=== PATIENT | female | born 1990 | race Caucasian/White ===

== ENCOUNTER 2020-03-10 23:46 | Emergency (ER) | payer OTHER ==
[2020-03-11] MEDS ORDERED: Acyclovir 200 MG Cap PO ONE (00:22)
--- NOTE | 2020-03-11 00:30 | EDM.PDOC ---
ED HPI GENERAL MEDICAL PROBLEM - General Chief Complaint: Neuro Symptoms/Deficits Stated Complaint: TENDERNESS LT SIDE OF FACE Time Seen by Provider: 03/11/20 00:24 Source of Information: Reports: Patient History Limitations: Reports: No Limitations - History of Present Illness INITIAL COMMENTS - FREE TEXT/NARRATIVE: pt arrived with left sided facial weakness, she is not able to close her left eye or wrinkle her forehead on that side, She has facial deviation Onset: Today, Other (started mid day.) Duration: Hour(s): Location: Reports: Head, Other (n history of tick exposure) Associated Symptoms: Reports: No Other Symptoms - Related Data Allergies Allergy/AdvReac Type Severity Reaction Status Date / Time No Known Allergies Allergy Verified 03/10/20 23:56 Home Meds: Home Meds Citalopram Hydrobromide [Celexa] 1 tab PO DAILY 03/10/20 [History] Past Medical History Psychiatric History: Reports: Anxiety - Infectious Disease History Infectious Disease History: Reports: Chicken Pox, Mononucleosis, Shingles Social & Family History - Tobacco Use Smoking Status *Q: Never Smoker - Caffeine Use Caffeine Use: Reports: Coffee - Recreational Drug Use Recreational Drug Use: No ED ROS GENERAL - Review of Systems Review Of Systems: See Below Constitutional: Reports: No Symptoms HEENT: Reports: Other (pt is not able to close her left eye. ) Respiratory: Reports: No Symptoms Cardiovascular: Reports: No Symptoms Endocrine: Reports: No Symptoms GI/Abdominal: Reports: No Symptoms : Reports: No Symptoms Musculoskeletal: Reports: No Symptoms Skin: Reports: No Symptoms ED EXAM, NEURO - Physical Exam Exam: See Below Text/Narrative:: pt arrived concerned because the sensation on her face is different. She is not able to close her left eye. She has facial deviation that started mid day today. Exam Limited By: No Limitations General Appearance: Alert, Anxious, Mild Distress, Other (pupils are equal and reactive. ) Ears: Normal TMs Nose: Normal Inspection Throat/Mouth: Normal Inspection Head Exam: Atraumatic Neck: Normal Inspection Respiratory/Chest: No Accessory Muscle Use Cardiovascular: Normal Peripheral Pulses GI/Abdominal: Soft, Non-Tender Neurological: Alert, Oriented x 3, Other ( facial weakness, pt is not able to close her left eye, Sh is not able to wrinkle her forehead, She has numbness in the left side of her tongue. ) Back Exam: Normal Inspection Extremities: Normal Inspection, Other ( all symptoms are localized to her face. ) Psychiatric: Normal Affect Course - Vital Signs Last Recorded V/S: Last Vital Signs Temp 36.4 C 03/11/20 00:01 Pulse 99 03/11/20 00:01 Resp 17 03/11/20 00:01 BP 146/90 H 03/11/20 00:01 Pulse Ox 100 03/11/20 00:01 - Orders/Labs/Meds Orders: Active Orders 24 hr Category Date Time Status LYME, TOTAL AB TEST/REFLEX Stat Lab 03/11/20 00:25 Ordered Meds: Medications Discontinued Medications Generic Name Dose Route Start Last Admin Trade Name Freq PRN Reason Stop Dose Admin Acyclovir 400 mg 03/11/20 00:22 03/11/20 00:29 Zovirax PO 03/11/20 00:23 400 mg ONETIME ONE Administration - Re-Assessments/Exams Free Text/Narrative Re-Assessment/Exam: 03/11/20 00:42 pt has no fever. Departure - Departure Time of Disposition: 00:24 Disposition: Home, Self-Care 01 Condition: Fair Clinical Impression: Frias's palsy - Discharge Information Referrals: PCP,None [Primary Care Provider] - Forms: ED Department Discharge Care Plan Goals: liquid tears , nitely eye patch. zovirax 400mg tid for 5 days, predisone 30mg now and a taper after that for 5 days, If this is not improving be seen in next 4-5 days otherwise follow up with regular in 1 week. predisone 30 mg tonight 20mg for 2 days, 15 mg the next and then 10 mg then stop Sepsis Event Note (ED) - Evaluation Sepsis Screening Result: No Definite Risk - Focused Exam Vital Signs: Vital Signs Temp Pulse Resp BP Pulse Ox 03/11/20 00:01 36.4 C 99 17 146/90 H 100 - My Orders Last 24 Hours: My Active Orders 03/11/20 00:25 LYME, TOTAL AB TEST/REFLEX Stat - Assessment/Plan Last 24 Hours: My Active Orders 03/11/20 00:25 LYME, TOTAL AB TEST/REFLEX Stat
[2020-03-15 11:11] LABS: LYME IGG/IGM AB <0.91 ISR (0.00-0.90)
== END 2020-03-11 00:47 | disposition home or self-care (01) ==
LOC: JP.ED 23:46
DX: G51.0 Bell's palsy (principal); F41.9 Anxiety disorder, unspecified; Z79.899 Other long term (current) drug therapy
CPT/HCPCS: 36415; 86618; 99284; A9270-GY